=== PATIENT | male | born 1965 | race Caucasian/White ===

== ENCOUNTER 2022-02-06 19:49 | Outpatient (NON) | payer OTHER, SELFPAY | END 2022-02-06 19:50 | disposition home or self-care (01) | LOC: ANHLAB 19:52 | PROVIDERS: Visit Provider Nurse Practitioner | DX: L02.91 Cutaneous abscess, unspecified (principal) | CPT/HCPCS: 87070; 87075; 87147; 87181; 87186; 87205 ==

== ENCOUNTER 2023-12-31 18:28 | Outpatient (CLI) | payer OTHER, SELFPAY ==
--- NOTE | ~2023-12-31 | CT_ITS ---
EXAMINATION: CT abdomen pelvis wo con DATE: 12/31/2023 18:55 INDICATION: RT FLANK PAIN TECHNIQUE: Computed tomography (CT) of the abdomen and pelvis was performed without intravenous contr ast. Automated exposure control and iterative reconstruction technique were employed. The dose-length product was 1330.86 mGy-cm. COMPARISON: None. 09/06/2013 FINDINGS: Lower thorax: Minimal dependent scar/atelectasis. Small focus of pleural thickening/scar with calcifi cation in the anterior right middle lobe. Liver: Diffusely low-density parenchyma Biliary/Gallbladder: Gallbladder is normal. No bile duct dilation. Pancreas: No mass or duct dilation. Spleen: Normal. Adrenals:No mass. Kidneys: Bilateral punctate nonobstructing calculi. No suspicious mass. Mild right perinephric and pe riureteral stranding and moderate right hydronephrosis. GI tract: No small or large bowel dilation. Surgically absent appendix. Diverticulosis without divert iculitis. Mesentery/Peritoneum: No ascites, mass, or free air. Retroperitoneum: No mass. Atherosclerotic abdominal aortic and/or arterial calcifications. Pelvis: 5 mm calcification in the distal right ureter. Normal bladder, prostate, and seminal vesicles . Soft Tissues: Soft tissues and body wall unremarkable. Bones: No acute osseous finding. IMPRESSION: Hepatic steatosis. 5 mm distal right ureteral stone causing moderate obstructive uropathy Reviewed, dictated and finalized at location K.
== END 2023-12-31 18:29 | disposition home or self-care (01) ==
PROVIDERS: Visit Provider Emergency Medicine
DX: N20.1 Calculus of ureter (principal); K76.0 Fatty (change of) liver, not elsewhere classified
CPT/HCPCS: 74176

== ENCOUNTER 2025-03-25 12:16 | Outpatient (CLI) | payer OTHER, SELFPAY ==
[2025-03-25 12:34] LABS: Hemoglobin 14.8 g/dL (14.0-18.0); Mean Corpuscular HGB Conc 33.6 g/dl (32-36); Mean Corpuscular Hemoglobin 32.7 pg (26-34); Mean Corpuscular Volume 97.1 fl (80-100); Mean Platelet Volume 9.2 fl (7.4-10.4); Platelet Count Result 206 k/mm3 (150-375); Red Blood Count 4.53 M/mm3 (4.6-6.20); Red Cell Distribution Width 12.7 % (11.5-14.5); White Blood Count 10.1 K/mm3 (4.5-10.0)
[2025-03-25 12:43] LABS: Alanine Aminotransferase 42 U/L (6-50); Albumin Level 4.5 g/dL (3.5-5.1); Alkaline Phosphatase 102 U/L (38-126); Anion Gap 8 mmol/L (4-12); Aspartate Amino Transferase 40 U/L (17-59); Bilirubin,Total 0.6 mg/dL (0.2-1.3); Blood Urea Nitrogen 12 mg/dL (9-20); Calcium 9.4 mg/dL (8.4-10.2); Carbon Dioxide 26 mmol/L (22-30); Chloride 104 mmol/L (98-107); Cholesterol 154 mg/dL (0-200); Estimated Glomerular Filt Rate > 60; Glucose 97 mg/dL (65-110); HDL Direct 40 mg/dL; Potassium 4.3 mmol/L (3.4-5.0); Sodium 138 mmol/L (137-145); Total Protein 7.8 g/dL (6.3-8.2); Triglycerides 89 mg/dL (<150)
[2025-03-25 12:46] LABS: INR 1.1
[2025-03-25 12:54] LABS: LDL Cholesterol Direct 80 mg/dL
[2025-03-25 13:02] LABS: Vitamin D 25 Hydroxy 74.5 ng/mL
== END 2025-03-25 12:17 | disposition home or self-care (01) ==
PROVIDERS: Visit Provider Nurse Practitioner Family
DX: R00.2 Palpitations (principal); R42 Dizziness and giddiness
CPT/HCPCS: 36415; 80053; 80061; 82306; 85027; 85610; 93005

== ENCOUNTER 2025-08-16 00:18 | Day surgery (SDC) | payer OTHER, SELFPAY ==
[2025-08-09 13:07] VITALS: BMI 33.3
--- NOTE | 2025-08-10 13:11 | SUR.PREOP ---
Patient's chart reviewed with Dr. Torres the anesthesiologist in regards if pt needed echo that was ordered from his recent office visit. Dr. Torres said pt is good to proceed with procedure without getting the echo.
[2025-08-16 08:37] VITALS: BP 109/66; PULSE 71; RESP 18; TEMP 36.1; O2SAT 98
[2025-08-16] MEDS: LACTATED RINGERS 1,000 ML 150 ML IV CONT (08:44)
--- NOTE | 2025-08-16 09:31 | P.PNAN_ITS ---
Anes - Initial Pre Proc Eval Procedure: Operation Date: 08/16/25 09:30 Proposed Procedures p Screening Colonoscopy - Jesse Rodriguez DO Date/Time: 08/16/25 09:31 Surgeon: Jesse Rodriguez DO Pre Op Diagnosis: screening for malignant neoplasm of colon Patient Data Age: 60 Gender: M Height: 1.65 m Weight: 95.4 kg Last Vital Signs Temp 36.1 C L 08/16/25 08:37 Pulse 71 08/16/25 08:37 Resp 18 08/16/25 08:37 BP 109/66 08/16/25 08:37 Pulse Ox 98 08/16/25 08:37 O2 Del Method Room Air 08/16/25 08:37 Allergies Allergy/AdvReac Type Severity Reaction Status Date / Time No Known Allergies Allergy Mild Verified 08/16/25 08:36 Home Medications ?Medication ?Instructions ?Recorded ?Confirmed ?Type aspirin 81 mg tablet,delayed 81 mg PO DAILY 08/02/25 1 10/16/24 History release Patient hx anesthesia problems: none Family hx anesthesia problems: none Results Review: All pre-operative results and documents have been reviewed as part of the pre- operative evaluation. [facility] Past Medical History Medical History (Updated 08/02/25 @ 12:47 by George Pandey MD) Dizziness Palpitations Surgical History Surgical History (Updated 08/02/25 @ 07:44 by Uriha Ferrari CMA) History of appendectomy Family History Family History (Updated 08/02/25 @ 07:47 by Uriah Ferrari CMA) Father Heart problem Social History Social History Smoking status: Never smoker Alcohol intake: current Alcohol use details: occasional, socially Substance use: never Substance use type: does not use Living arrangements: with family Spiritual care concerns: No Anes - Eval Final PreProcedure Day of Procedure 08/16/25 09:31 Patient weight: obese Heart: regular rate and rhythm Lungs: clear to auscultation Airway: Mallampati scale class II Neurological: alert and oriented Last oral intake: >/= 8 hours ASA classification: II Emergent: no Anesthetic plan: proceed Anesthesia type and monitoring: general GIVS and standard monitoring Results Review: All pre-operative results and documents have been reviewed as part of the pre- operative evaluation. Informed Consent: The patient's anesthetic plan and its attendant risks and benefits were discussed with the patient/family/POA. Questions were solicited and answers provided to the satisfaction of the patient/family/POA.
--- NOTE | 2025-08-16 09:46 | PM.IMHP ---
H&P: HPI History of Present Illness Date/Time: 08/16/25 09:46 Chief Complaint: screening for colorectal cancer Narrative: this is a 60-year-old man who presents for colonoscopy. He has never had a colonoscopy before. He denies any hematochezia or melena. He denies family history of colon cancer. Review of Systems Review of Systems: All systems reviewed & are unremarkable except as noted in HPI and below Constitutional: Constitutional: Denies chills, Denies fever(s), Denies headache(s) and Denies weight loss Eyes: Eyes: Denies change in vision ENT: Denies dizziness, Denies headache(s), Denies neck mass and Denies throat swelling Cardiovascular: Cardiovascular: Denies chest pain, Denies lightheadedness and Denies dyspnea Respiratory: Respiratory: Denies cough, Denies dyspnea and Denies wheezing Gastrointestinal: Gastrointestinal: Denies abdominal pain, Denies change in bowel habits, Denies nausea and Denies vomiting Genitourinary: Genitourinary: Denies hematuria and Denies dysuria Musculoskeletal: Musculoskeletal: Reports as per HPI Integumentary/Breasts: Skin/Breast: Reports as per HPI Neurologic: Denies dizziness and Denies headache(s) Allergic/Immunologic: Allergic/Immunologic: Denies throat swelling and Denies wheezing [facility] Past Medical History Medical History (Updated 08/16/25 @ 09:47 by Jesse Rodriguez DO) Dizziness Palpitations Surgical History Surgical History (Updated 08/02/25 @ 07:44 by Uriah Ferrari CMA) History of appendectomy Family History Family History (Updated 08/02/25 @ 07:47 by Uriah Ferrari CMA) Father Heart problem Social History Social History Smoking status: Never smoker Alcohol intake: current Alcohol use details: occasional, socially Substance use: never Substance use type: does not use Living arrangements: with family Spiritual care concerns: No Meds Home Medications and Allergies Home Medications ?Medication ?Instructions ?Recorded ?Confirmed ?Type aspirin 81 mg tablet,delayed 81 mg PO DAILY 08/02/25 08/16/25 History release Allergies Allergy/AdvReac Type Severity Reaction Status Date / Time No Known Allergies Allergy Mild Verified 08/16/25 08:36 Vital Signs Vital Signs - 24 hr 08/16/25 08:37 Temperature 97 F L Pulse Rate 71 Respiratory Rate 18 Blood Pressure 109/66 Pulse Oximetry 98 Oxygen Delivery Room Air Exam Const: General: no acute distress and alert Orientation/consciousness: patient oriented x3 HENMT: Head: normocephalic and atraumatic Ears: hearing grossly normal bilaterally Face/Nose/Sinus: Normal nares present Mouth: Yes Normal oral and palatal mucosa present Eyes: Periorbital: periorbital findings normal Sclera: sclerae normal EOM: EOMs intact bilaterally Neck: Neck: normal visual inspection, no lymphadenopathy and trachea midline Chest: Chest palpation & inspection: normal inspection of the chest Resp: Effort & Inspection: normal respiratory effort Auscultation: clear to auscultation bilaterally Cardio: Jugular venous distension: no JVD Rate: regular rate Rhythm: regular rhythm Heart sounds: S1 normal heart sound present and S2 normal heart sound present Peripheral pulses: Peripheral pulses 2+ throughout GI: Inspection: normal to inspection GI Palp: Yes Soft to palpation, No Tenderness to palpation present (GI), No Guarding due to palpation present (GI) and No Rebound tenderness present Percussion: Yes normal to percussion Auscultation: normal bowel sounds : General: Yes no CVA tenderness Back/Spine/Pelvis: Back: no CVA tenderness Neuro: General: patient oriented x3, no focal motor deficits and CN's II-XI intact bilaterally Cognition (Neuro): normal cognition Speech: normal speech Motor exam (neuro): 5/5 motor strength present throughout Extrem: General: capillary refill normal and no clubbing, cyanosis or edema Assessment and Plan Assessment and plan (1) Screening for colorectal cancer: Code(s): Z12.11 - Encounter for screening for malignant neoplasm of colon; Z12.12 - Encounter for screening for malignant neoplasm of rectum Status: Acute Assessment and Plan: I have recommended colonoscopy. I have discussed the procedure, risks, benefits, and alternatives. Questions were answered. Patient is agreeable to proceed.
--- NOTE | 2025-08-16 10:09 | S_PTH ---
PATIENT: Rudi Wallis LOC: [facility] Samuels#:[id number] AGE/SX: 60/M ROOM: RE08/16/[address]: Jesse Rodriguez DO : 1965 BED: DIS: 08/16/2025 SPEC #: [id number] RECD: 08/16/25 10:40 STATUS: DENA REDarci #: [id number] RENAE: 08/16/25 10:[address]: Jesse Rodriguez DEPT: [facility] Surgical RECD BY: Caroline Paris ENTERED: 08/16/25 10:40 SP TYPE: Surgical OTHR DR: George Pandey MD Tissues: A - Colon Polypectomy B - Colon Polypectomy Procedures: Hematoxylin and Eosin Stain Gross and Microscopic Level 4
[2025-08-16 10:13] VITALS: BP 105/64; PULSE 63; RESP 14; O2SAT 97
[2025-08-16 10:23] VITALS: BP 107/64; PULSE 65; RESP 22; O2SAT 98
[2025-08-16 10:33] VITALS: BP 116/85; PULSE 75; RESP 23; O2SAT 100
== END 2025-08-16 10:42 | disposition home or self-care (01) ==
PROVIDERS: PCP Family Medicine; Visit Provider Surgery
PROC: 0DJD8ZZ Inspection of Lower Intestinal Tract, Via Natural or Artificial Opening Endoscopic (ICD-10-PCS; CPT 45378; principal; 2025-08-16 09:30)
DX: Z12.11 Encounter for screening for malignant neoplasm of colon (principal); K63.5 Polyp of colon; K57.30 Diverticulosis of large intestine without perforation or abscess without bleeding; R00.2 Palpitations; E66.9 Obesity, unspecified; Z68.35 Body mass index [BMI] 35.0-35.9, adult; Z79.82 Long term (current) use of aspirin; Z98.890 Other specified postprocedural states; Z82.49 Family history of ischemic heart disease and other diseases of the circulatory system
CPT/HCPCS: 45385; 88305; J2704; J7120